=== PATIENT | female | born 1955 | race Caucasian/White ===

== ENCOUNTER → 2017-07-17 | Outpatient (CLI) | payer BC ==
--- NOTE | 2017-07-17 12:26 | MM ---
Reason for exam: follow-up at short interval from prior study. Last mammogram was performed 1 year and 1 month ago. History: Took hormonal contraceptives beginning at age 18. Physical Findings: Nurse did not find any significant physical abnormalities on exam. MG 3D Diag Mammo W/Cad KAROLINE Bilateral CC and MLO view(s) were taken. Prior study comparison: June 06, 2016, mammogram, performed at [facility]. May 30, 2016, mammogram, performed at [facility]. March 10, 2015, mammogram, performed at [facility]. March 08, 2014, mammogram, performed at [facility]. There are scattered fibroglandular densities. There is a persistent mass. These results were verbally communicated with the patient and result sheet given to the patient on 07/17/17. ASSESSMENT: Suspicious, BI-RAD 4 RECOMMENDATION: Stereotactic core biopsy of the left breast. Called with mammographic findings and has scheduled an appointment for the patient for 08/08/17 at 10:[address] Leonard. PRELIMINARY REPORT CALLED AND FAXED TO DR. LEONARD ON 07/17/17.
--- NOTE | 2017-07-17 12:27 | USB ---
Reason for exam: follow-up at short interval from prior study. History: Took hormonal contraceptives beginning at age 18. US Breast BILAT Right breast ultrasound includes all four quadrants, the retroareolar region and axilla. Finding demonstrates no cystic or solid lesion seen. Left breast ultrasound includes all four quadrants, the retroareolar region and axilla. Finding demonstrates a 3 x 2 x 3mm oval, cystic lesion at 12 o'clock. These results were verbally communicated with the patient and result sheet given to the patient on 07/17/17. ASSESSMENT: Suspicious, BI-RAD 4 RECOMMENDATION: Stereotactic core biopsy of the left breast. Called with mammographic findings and has scheduled an appointment for the patient for 08/08/17 at 10:[address] Leonard. PRELIMINARY REPORT CALLED AND FAXED TO DR. LEONARD ON 07/17/17.
== END | disposition home or self-care (01) ==
LOC: RADMAMWWP 08:48
PROVIDERS: ATTEND Surgery
DX: N63.0 Unspecified lump in unspecified breast (principal)
CPT/HCPCS: 77066; 76641; G0279; 77062

== ENCOUNTER → 2019-03-06 | Outpatient (CLI) | payer BC ==
--- NOTE | 2019-03-06 13:52 | ECHOF ---
Referral Reason:I10 Hypertension, R06.09 Dyspnea MEASUREMENTS -------- HEIGHT: 162.6 cm WEIGHT: 72.6 kg BP: RVIDd: 3.8 cm (< 3.3) IVSd: 1.4 cm (0.6 - 1.1) LVIDd: 4.0 cm (3.9 - 5.3) LVPWd: 1.4 cm (0.6 - 1.1) IVSs: 1.4 cm LVIDs: 3.1 cm LVPWs: 1.6 cm LA Diam: 3.2 cm (2.7 - 3.8) LAESV Index (A-L): 25.60 ml/m Ao Diam: 3.3 cm (2.0 - 3.7) AV Cusp: 1.8 cm (1.5 - 2.6) LA Diam: 4.0 cm (2.7 - 3.8) MV EXCURSION: 20.130 mm (> 18.000) MV EF SLOPE: 65 mm/s (70 - 150) EPSS: 0.8 cm MV E Osvaldo: 0.66 m/s MV DecT: 238 ms MV A Osvaldo: 0.91 m/s MV E/A Ratio: 0.72 RAP: 5.00 mmHg RVSP: 25.25 mmHg FINDINGS -------- Sinus rhythm. This was a technically adequate study. The left ventricular size is normal. There is mild concentric left ventricular hypertrophy. Overa ll left ventricular systolic function is low-normal with, an EF between 50 - 55 %. The right ventricle is normal in size. The left atrial size is normal. Normal LA size by volume 22+/-6 ml/m2. The right atrial size is normal. There is mild aortic valve sclerosis. There is no evidence of aortic regurgitation. Mild mitral annular calcification present. Mild mitral regurgitation is present. Mild tricuspid regurgitation present. Right ventricular systolic pressure is normal at < 35 mmHg. There is no evidence of pulmonary hypertension. There is no pulmonic regurgitation present. The aortic root size is normal. There is no pericardial effusion. CONCLUSIONS -------- 1. Sinus rhythm. 2. This was a technically adequate study. 3. The left ventricular size is normal. 4. There is mild concentric left ventricular hypertrophy. 5. Overall left ventricular systolic function is low-normal with, an EF between 50 - 55 %. 6. The right ventricle is normal in size. 7. The left atrial size is normal. 8. Normal LA size by volume 22+/-6 ml/m2. 9. The right atrial size is normal. 10. There is mild aortic valve sclerosis. 11. Mild mitral annular calcification present. 12. Mild mitral regurgitation is present. 13. Mild tricuspid regurgitation present. 14. Right ventricular systolic pressure is normal at < 35 mmHg. 15. There is no evidence of pulmonary hypertension. 16. There is no pulmonic regurgitation present. 17. The aortic root size is normal. 18. There is no pericardial effusion. ENGINEERING DIRECTOR: Faith Ramos RDCS
== END | disposition home or self-care (01) ==
LOC: RADECHMAIN 08:14
PROVIDERS: ATTEND Family Medicine
DX: I08.3 Combined rheumatic disorders of mitral, aortic and tricuspid valves (principal); R06.09 Other forms of dyspnea
CPT/HCPCS: 93306

== ENCOUNTER → 2019-05-08 | Outpatient (CLI) | payer BC ==
--- NOTE | 2019-05-08 09:58 | MM ---
Reason for exam: additional evaluation requested from prior study. Last mammogram was performed 1 year and 10 months ago. History: Took hormonal contraceptives beginning at age 18. Physical Findings: Nurse did not find any significant physical abnormalities on exam. MG 3D Diag Mammo W/Cad KAROLINE Bilateral CC and MLO view(s) were taken. Prior study comparison: July 17, 2017, bilateral MG 3d diag mammo w/cad [facility]. June 06, 2016, mammogram, performed at [facility]. There are scattered fibroglandular densities. There is a 6 x 3mm lower outer quadrant mass 5-6cm from nipple, lower inner quadrant 3 x 4mm mass in seen 5cm from nipple. These results were verbally communicated with the patient and result sheet given to the patient on 05/08/19. ASSESSMENT: Incomplete: need additional imaging evaluation, BI-RAD 0 RECOMMENDATION: Ultrasound of the left breast. (lower)
--- NOTE | 2019-05-08 10:05 | USB ---
Reason for exam: additional evaluation requested from abnormal screening. History: Took hormonal contraceptives beginning at age 18. US Breast Limited LT Left limited breast ultrasound including focal area of concern, retroareolar and axilla demonstrates no cystic or solid lesion seen. No suspicious sonographic finding. Precautionary 6 month follow up left mammogram recommended. Findings similar to post recent priors such as 2017 but not present in 2014. These results were verbally communicated with the patient and result sheet given to the patient on 05/08/19. ASSESSMENT: Probably benign, BI-RAD 3 RECOMMENDATION: Follow-up diagnostic mammogram of the left breast in 6 months.
== END | disposition home or self-care (01) ==
LOC: RADMAMWWP 06:52
PROVIDERS: ATTEND Family Medicine
DX: N64.4 Mastodynia (principal); R92.2 Inconclusive mammogram; R92.8 Other abnormal and inconclusive findings on diagnostic imaging of breast
CPT/HCPCS: 77062; 77066

== ENCOUNTER → 2019-12-14 | Outpatient (CLI) | payer BC ==
--- NOTE | 2019-12-14 08:28 | MM ---
Reason for exam: follow-up at short interval from prior study. Last mammogram was performed 7 months ago. History: Cyst aspiration of the right breast. Took hormonal contraceptives beginning at age 18. Physical Findings: Nurse did not find any significant physical abnormalities on exam. MG 3D Diag Mammo W/Cad LT CC and MLO view(s) were taken of the left breast. Prior study comparison: May 08, 2019, bilateral MG 3d diag mammo w/cad [facility]. July 17, 2017, bilateral MG 3d diag mammo w/cad [facility]. There are scattered fibroglandular densities. Nodularity centrally and medially stable for 6 months. Possibly stable back to an older 2017 prior. Additional short follow up recommended. These results were verbally communicated with the patient and result sheet given to the patient on 12/14/19. ASSESSMENT: Probably benign, BI-RAD 3 RECOMMENDATION: Follow-up diagnostic mammogram of both breasts in 6 months.
== END | disposition home or self-care (01) ==
LOC: RADMAMWWP 06:57
PROVIDERS: ATTEND Family Medicine
DX: R92.8 Other abnormal and inconclusive findings on diagnostic imaging of breast (principal)
CPT/HCPCS: 77061; 77065

== ENCOUNTER → 2020-06-01 | Outpatient (CLI) | payer BC, MEDICARE ==
--- NOTE | 2020-06-01 15:46 | BD ---
EXAMINATION TYPE: Axial Bone Density DATE OF EXAM: 06/01/2020 COMPARISON: NONE CLINICAL HISTORY: 65 YR OLD FEMALE......ICD-10 CODE: N95.1 MENOPAUSAL STATE Height: 64 Weight: 160 FRAX RISK QUESTIONS: NOTHING TO NOTE HERE RISK FACTORS HISTORY OF: Active: YES Postmenopausal woman: YES, AT AGE 52 YRS OLD Hyperparathyroidism: NO Adrenal Insufficiency: NO MEDICATIONS: Additional Medications: BP MEDS, STATIN FOR CHOLESTEROL, MULTIVITAMIN Additional History: HYPERTENSION AND CHOLESTEROL EXAM MEASUREMENTS: Bone mineral densitometry was performed using the [employer] System. Bone mineral density as measured about the Lumbar spine is: ----- L1-L4(G/cm2): 1.279 T Score Values are as follows: ----- L1: -0.1 ----- L2: 0.2 ----- L3: 1.7 ----- L4: 1.1 ----- L1-L4: 0.8 Bone mineral density IS HER FIRST SCAN......BASELINE STUDY Bone mineral density about the R hip (g/cm2): 1.038 Bone mineral density about the L hip (g/cm2): 1.055 T Score values are as follows: -----R Neck: -0.8 -----L Neck: -0.6 -----R Total: 0.2 -----L Total: 0.4 Bone mineral density IS HER BASELINE STUDY FRAX%S: THERE IS A 7.6% CHANCE FOR A MAJOR OSTEOPOROTIC FX AND A 0.5% FOR HIP.....PROBABILITY FOR F X IN 10 YRS TIME IMPRESSION: Normal (Values between +1 and -1 indicate normal bone mass). Consider repeating this study in 5 year s or sooner if there is some new clinical indication. NOTE: T-SCORE=SD OF THE YOUNG ADULT MEAN.
== END | disposition home or self-care (01) ==
LOC: RADBDWWP 07:08
PROVIDERS: ATTEND Family Medicine
DX: N95.1 Menopausal and female climacteric states (principal)
CPT/HCPCS: 77080

== ENCOUNTER → 2020-06-14 | Outpatient (CLI) | payer BC ==
--- NOTE | 2020-06-14 08:33 | MM ---
Reason for exam: additional evaluation requested from prior study. Last mammogram was performed 6 months ago. History: Cyst aspiration of the right breast. Took hormonal contraceptives beginning at age 18. Physical Findings: Nurse did not find any significant physical abnormalities on exam. MG 3D Diag Mammo W/Cad KAROLINE Bilateral CC and MLO view(s) were taken. Prior study comparison: May 08, 2019, bilateral MG 3d diag mammo w/cad [facility]. July 17, 2017, bilateral MG 3d diag mammo w/cad [facility]. May 30, 2016, mammogram, performed at [facility]. No significant new findings when compared with previous films. These results were verbally communicated with the patient and result sheet given to the patient on 06/14/20. ASSESSMENT: Benign, BI-RAD 2 RECOMMENDATION: Routine screening mammogram of both breasts in 1 year. Manage patient on a clinical basis.
== END | disposition home or self-care (01) ==
LOC: RADMAMWWP 07:34
PROVIDERS: ATTEND Family Medicine
DX: R92.8 Other abnormal and inconclusive findings on diagnostic imaging of breast (principal)
CPT/HCPCS: 77062; 77066

== ENCOUNTER → 2021-06-16 | Outpatient (CLI) | payer BC ==
--- NOTE | 2021-06-20 10:53 | MM ---
Reason for exam: screening (asymptomatic). Last mammogram was performed 1 year ago. History: Cyst aspiration of the right breast. Took hormonal contraceptives beginning at age 18. Physical Findings: A clinical breast exam by your physician is recommended on an annual basis and results should be correlated with mammographic findings. MG 3D Screening Mammo W/Cad Bilateral CC and MLO view(s) were taken. Prior study comparison: June 14, 2020, bilateral MG 3d diag mammo w/cad [facility]. December 14, 2019, left breast MG 3d diag mammo w/cad LT. There are scattered fibroglandular densities. There is chronic nodularity in the left breast, stable. Asymmetric breast tissue left medial anterior breast, stable. There is no discrete abnormality. ASSESSMENT: Benign, BI-RAD 2 RECOMMENDATION: Routine screening mammogram of both breasts in 1 year.
== END | disposition home or self-care (01) ==
LOC: RADMAMWWP 07:00
PROVIDERS: ATTEND Family Medicine
DX: Z12.31 Encounter for screening mammogram for malignant neoplasm of breast (principal)
CPT/HCPCS: 77063; 77067

== ENCOUNTER → 2022-06-19 | Outpatient (CLI) | payer MEDICARE ==
--- NOTE | 2022-06-20 09:42 | MM ---
Reason for Exam: Screening (asymptomatic). Last screening mammogram was performed 12 month(s) ago. Patient History: Menarche at age 16. First Full-Term at age 25. Hysterectomy at age 52. Postmenopausal. Patient has history of breast feeding. Hormonal Contraceptives, from age 18 until age 22. Cyst Aspiration on the Right side. Risk Values: Rebecca 5 year model risk: 1.7%. NCI Lifetime model risk: 5.9%. Prior Study Comparison: 05/30/2016 Screening Mammogram, [facility]. 06/06/2016 Screening Mammogram, [facility]. 07/17/2017 Bilateral Diagnostic Mammogram, [facility]. 05/08/2019 Bilateral Diagnostic Mammogram, [facility]. 12/14/2019 Left Diagnostic Mammogram, [facility]. 06/14/2020 Bilateral Diagnostic Mammogram, [facility]. 06/16/2021 Bilateral Screening Mammogram, [facility]. Tissue Density: There are scattered fibroglandular densities. Findings: Analyzed By CAD. There is no suspicious group of microcalcifications or new suspicious mass in either breast. Overall Assessment: Negative, BI-RAD 1 Management: Screening Mammogram of both breasts in 1 year. A clinical breast exam by your physician is recommended on an annual basis and results should be correlated with mammographic findings. [facility] will attempt to contact patient to return for supplemental views and ultrasound if indicated. Electronically signed and approved by: Bay Seay DO
== END | disposition home or self-care (01) ==
LOC: RADMAMWWP 07:51
PROVIDERS: ATTEND Family Medicine
DX: Z12.31 Encounter for screening mammogram for malignant neoplasm of breast (principal); Z78.0 Asymptomatic menopausal state
CPT/HCPCS: 77063; 77067

== ENCOUNTER → 2022-10-25 | Outpatient (CLI) | payer MEDICARE ==
--- NOTE | 2022-10-25 09:12 | US ---
EXAMINATION TYPE: US duplex aorta DATE OF EXAM: 10/25/2022 COMPARISON: NONE CLINICAL INDICATION: Female, 67 years old with history of Z82.49FAMILY HX OF ISCHEM HEART DIS AND OTH DIS OF; family hx of AAA TECHNIQUE: Multiple sonographic images of the abdominal aorta are obtained. FINDINGS: EXAM MEASUREMENTS: Abdominal Aorta: Proximal: 2.2 x 1.9 cm Mid: 1.3 x 1.8 cm Distal: 1.5 x 1.6 Bifurcation: .8 cm 1.1 cm Mild atherosclerotic irregularity throughout. IMPRESSION: No sonographic evidence for AAA.
== END | disposition home or self-care (01) ==
LOC: RADUSWWP 07:09
PROVIDERS: ATTEND Family Medicine
DX: Z82.49 Family history of ischemic heart disease and other diseases of the circulatory system (principal)
CPT/HCPCS: 93979

== ENCOUNTER → 2023-06-21 | Outpatient (CLI) | payer MEDICARE ==
--- NOTE | 2023-06-24 07:46 | MM ---
Reason for Exam: Screening (asymptomatic). Last screening mammogram was performed 12 month(s) ago. Patient History: Menarche at age 16. First Full-Term at age 25. Hysterectomy at age 52. Postmenopausal. Patient has history of breast feeding. Hormonal Contraceptives, from age 18 until age 22. Cyst Aspiration on the Right side. Risk Values: Rebecca 5 year model risk: 1.7%. NCI Lifetime model risk: 5.6%. Prior Study Comparison: 06/14/2020 Bilateral Diagnostic Mammogram, [facility]. 06/16/2021 Bilateral Screening Mammogram, [facility]. 06/19/2022 Bilateral MG 3D screening mammo w/cad, [facility]. Tissue Density: There are scattered areas of fibroglandular density. Findings: Analyzed By CAD. The pattern is symmetrical. No significant interval change is evident. No suspicious groups of microcalcifications, spiculated or lobular masses, architectural distortion or other secondary signs of malignancy are mammographically apparent. Overall Assessment: Benign, BI-RAD 2 Management: Screening Mammogram of both breasts in 1 year. A negative mammogram report should not preclude additional follow up of suspicious palpable abnormalities. Patient should continue monthly self breast exam. A clinical breast exam by your physician is recommended on an annual basis and results should be correlated with mammographic findings. Electronically signed and approved by: Inder Garber D.O. Radiologis
== END | disposition home or self-care (01) ==
LOC: RADMAMWWP 06:57
PROVIDERS: ATTEND Family Medicine
DX: Z12.31 Encounter for screening mammogram for malignant neoplasm of breast (principal); Z78.0 Asymptomatic menopausal state
CPT/HCPCS: 77063; 77067

== ENCOUNTER → 2024-08-03 | Outpatient (CLI) | payer MEDICARE ==
--- NOTE | 2024-08-04 08:32 | MM ---
Reason for Exam: Screening (asymptomatic). Last mammogram was performed 1 year(s) and 2 month(s) ago. Patient History: Menarche at age 16. First Full-Term at age 25. Hysterectomy at age 52. Postmenopausal. Patient has history of breast feeding. Hormonal Contraceptives, from age 18 until age 22. Cyst Aspiration on the Right side. Risk Values: Rebecca 5 year model risk: 1.7%. NCI Lifetime model risk: 5.4%. Prior Study Comparison: 06/16/2021 Bilateral Screening Mammogram, [facility]. 06/19/2022 Bilateral MG 3D screening mammo w/cad, [facility]. 06/21/2023 Bilateral MG 3D screening mammo w/cad, [facility]. Tissue Density: The breasts are heterogeneously dense, which may obscure small masses. Findings: Analyzed By CAD. A skin lesion in the medial aspect left breast as marked by the technologist on today's study. Just posterior to this there is a new 8mm focal asymmetry on CC view not clearly seen on MLO view. Follow-up advised. Overall Assessment: Incomplete: need additional imaging evaluation, BI-RAD 0 Management: Diagnostic Mammogram of the left breast. Return for additional spot 3-D and 3-D true lateral views left breast. Patient should continue monthly self-breast exams. A clinical breast exam by your physician is recommended on an annual basis. This exam should not preclude additional follow-up of suspicious palpable abnormalities. Note on Rebecca scores and lifetime risk: 1. A Rebecca score greater than 3% is considered moderate risk. If this is the case, consider specialist referral to assess eligibility for a risk reducing agent. 2. If overall lifetime risk for the development of breast cancer is 20% or higher, the patient may qualify for future screening with alternating mammogram and breast MRI. [facility], , 08/04/2024 8:28 AM. Electronically signed and approved by: Parminder Iglesias M.D.
== END | disposition home or self-care (01) ==
LOC: RADMAMWWP 16:20
PROVIDERS: ATTEND Family Medicine
DX: Z12.31 Encounter for screening mammogram for malignant neoplasm of breast (principal); R92.333 Mammographic heterogeneous density, bilateral breasts; Z78.0 Asymptomatic menopausal state; Z92.0 Personal history of contraception
CPT/HCPCS: 77063; 77067

== ENCOUNTER → 2024-08-05 | Outpatient (CLI) | payer MEDICARE ==
--- NOTE | 2024-08-10 11:37 | MM ---
Reason for Exam: Additional evaluation requested from abnormal screening. Last screening mammogram was performed less than 1 month ago. Patient History: Menarche at age 16. First Full-Term at age 25. Hysterectomy at age 52. Postmenopausal. Patient has history of breast feeding. Hormonal Contraceptives, from age 18 until age 22. Cyst Aspiration on the Right side. Risk Values: Rebecca 5 year model risk: 1.7%. NCI Lifetime model risk: 5.4%. Prior Study Comparison: 06/19/2022 Bilateral MG 3D screening mammo w/cad, [facility]. 06/21/2023 Bilateral MG 3D screening mammo w/cad, [facility]. 08/03/2024 Bilateral MG 3D screening mammo w/cad, [facility]. Tissue Density: Left: There are scattered areas of fibroglandular density. Findings: Analyzed By CAD. No distinct new lesion persists on additional views at the posterior aspect of the skin lesion medially in the left breast. Overall Assessment: Negative, BI-RAD 1 Management: Screening Mammogram of both breasts in 1 year. Return to routine follow-up. Results were given to the patient verbally at the time of exam. Patient should continue monthly self-breast exams. A clinical breast exam by your physician is recommended on an annual basis. This exam should not preclude additional follow-up of suspicious palpable abnormalities. Note on Rebecca scores and lifetime risk: 1. A Rebecca score greater than 3% is considered moderate risk. If this is the case, consider specialist referral to assess eligibility for a risk reducing agent. 2. If overall lifetime risk for the development of breast cancer is 20% or higher, the patient may qualify for future screening with alternating mammogram and breast MRI. [facility], , 08/05/2024 7:48 AM. Electronically signed and approved by: Parminder Iglesias M.D.
== END | disposition home or self-care (01) ==
LOC: RADMAMWWP 07:24
PROVIDERS: ATTEND Family Medicine
DX: R92.8 Other abnormal and inconclusive findings on diagnostic imaging of breast (principal); R92.322 Mammographic fibroglandular density, left breast; Z78.0 Asymptomatic menopausal state; Z92.0 Personal history of contraception
CPT/HCPCS: 77061; 77065